=== PATIENT | female | born 1965 | race Native Hawaiian/Other Pacific Islander ===

== ENCOUNTER 2022-05-09 22:48 | Emergency (ER) | payer SELFPAY ==
[~2022-05-09] VITALS: Ht 152.4 cm; Wt 68.0 kg
[2022-05-09 23:00] VITALS: BP 153/98
--- NOTE | 2022-05-09 23:05 | NUR ---
TO LOBBY A/W BED AMBULATORY NASAL SWABS FOR ESTELITA AND INFLUENZA A&B SENT TO LAB.
--- NOTE | 2022-05-09 23:30 | NUR ---
SEEN AND EXAMINED BY STACY
[2022-05-09] MEDS ORDERED: IBUP-2213 PO (23:58)
[2022-05-09] MEDS ORDERED: GUAI237L61 PO (23:58)
--- NOTE | 2022-05-10 00:57 | NUR ---
PT AMBULATED TO BED #1
--- NOTE | 2022-05-10 01:09 | NUR ---
X-Ray at bedside.
[2022-05-10] MEDS ORDERED: KETOROLAC 15 MG/ML VIAL ONE (01:10)
[2022-05-10] MEDS: KETOROLAC 15 MG/ML VIAL IM ONE (01:24)
--- NOTE | 2022-05-10 02:13 | NUR ---
Patient discharged with v/s stable. Written and verbal after care instructions given and explained. Patient alert, oriented and verbalized understanding of instructions. Ambulatory with steady gait. All questions addressed prior to discharge. ID band removed. Patient advised to follow up with PMD. Rx of MOTRIN AND ROBITUSSIN given. Patient educated on indication of medication including possible reaction and side effects. Opportunity to ask questions provided and answered.
== END 2022-05-10 02:13 | disposition home or self-care (01) ==
LOC: MED 22:48
DX: U07.1 COVID-19 (principal); M79.10 Myalgia, unspecified site; I10 Essential (primary) hypertension; Z79.899 Other long term (current) drug therapy
CPT/HCPCS: 71045; 87426; 87804; 99284; Q0092; J1885